=== PATIENT | female | born 1955 | race Caucasian/White ===

== ENCOUNTER 2022-09-22 09:15 | Outpatient (RCR) | payer MEDICARE, MEDICAID, SELFPAY ==
--- NOTE | ~2022-09-22 | XR_ITS ---
EXAMINATION: XR CHEST CLINICAL INFORMATION: Preprocedure COMPARISON: None TECHNIQUE: 2 views of the chest were obtained. FINDINGS: No significant abnormality is noted involving the heart, lungs, mediastinum, bony thorax or soft tissues. Degenerative changes of the spine. XR/XR chest 2V IMPRESSION: Unremarkable examination.
--- NOTE | ~2022-09-22 | XR_ITS ---
EXAMINATION: XR FOOT, LEFT CLINICAL INFORMATION: Preprocedure hyperbaric oxygen COMPARISON: None TECHNIQUE: AP, lateral, and oblique views of the left foot. 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 There is no focal bony destructive process or definite periostitis. No dislocation. There are bulky posterior and plantar calcaneal spurs. Intravascular stent is noted posterior lower leg. No definite gas tracking in soft tissues. XR/XR foot LT min 3V IMPRESSION: 1. 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 2. No focal bony destructive process or definite periostitis.
[2022-10-06 12:56] LABS: MANUAL DIFF FLAG NO
[2022-10-06 13:14] LABS: Basophils Percent Auto 0.3 % (0-2); Eosinophils Absolute Auto 0.2 X10*3/uL (0.0-0.4); Eosinophils Percent Auto 2.2 % (0-4); Imm Gran Abs Auto 0.04 X10*3/uL (0.00-0.03); Imm Gran Pct Auto 0.4 % (0.0-0.4); Lymphocytes Absolute Auto 1.7 X10*3/uL (1.2-4.9); Mean Corpuscular HGB Conc 30.8 g/dl (31.0-35.0); Mean Corpuscular Hemoglobin 26.7 pg (27.0-33.0); Mean Corpuscular Volume 86.7 fL (80.0-98.0); Mean Platelet Volume 8.8 fL (9.4-12.3); Monocytes Absolute Auto 0.6 X10*3/uL (0.1-1.2); Monocytes Percent Auto 6.3 % (2-11); Neutrophils Absolute Auto 7.3 x10*3/uL (2.0-8.3); Neutrophils Percent Auto 73.8 % (45-73); Platelet Count 423 X10*3/uL (160-400); White Blood Count 9.9 X10*3/uL (4.8-10.8)
[2022-10-06 13:40] LABS: Anion Gap 17 (12-20); Blood Urea Nitrogen 19 mg/dL (9-16); Calcium 9.4 mg/dL (8.4-10.2); Carbon Dioxide 25 mmol/L (22-29); Chloride 101 mmol/L (96-108); Estimated Glomerular Filt Rate > 60; Glucose Random 118 mg/dL (60-115); Potassium 4.3 mmol/L (3.3-5.1); Sodium 139 mmol/L (135-145)
[2022-10-06 13:47] LABS: Estimated Average Glucose 186 mg/dL; Hemoglobin A1c % 8.1 %
[2022-10-06 13:58] LABS: Erythrocyte Sedimentation Rate 88 MM/HR (0-20)
== END 2023-05-08 14:06 | disposition home or self-care (01) ==
LOC: HO.WCC 09:15
PROVIDERS: PCP Physician Assistant Medical; Visit Provider Physician Assistant
DX: E11.621 Type 2 diabetes mellitus with foot ulcer (principal); L97.523 Non-pressure chronic ulcer of other part of left foot with necrosis of muscle; T87.81 Dehiscence of amputation stump; T86.821 Skin graft (allograft) (autograft) failure; E11.52 Type 2 diabetes mellitus with diabetic peripheral angiopathy with gangrene; R60.9 Edema, unspecified; Z89.412 Acquired absence of left great toe; Z86.718 Personal history of other venous thrombosis and embolism
CPT/HCPCS: 11042; 11043; 11044; 36415; 71046; 73630; 80048; 83036; 84134; 85025; 85652; 86140; 97602; 99183; 99212; 99213; 99214

== ENCOUNTER 2024-10-06 23:59 | Outpatient (BNV) | payer MEDICARE, MEDICAID, SELFPAY | END 2024-10-07 23:59 | PROVIDERS: PCP Physician Assistant Medical; Visit Provider Internal Medicine | DX: R00.0 Tachycardia, unspecified (principal); D64.9 Anemia, unspecified | CPT/HCPCS: 99223 ==